=== PATIENT | male | born 2000 | race Hispanic/Latino ===

== ENCOUNTER 2023-01-15 21:27 | Emergency (ER) | payer OTHER ==
--- OUTSIDE RECORDS SUMMARY | 2023-01-15 21:32 | XMS REPORT | Continuity of Care Document ---
:2000 Author Organization [facility] t Address [address] [facility] [address] [place] [address] Care Team Providers Name Role Phone Estelle Carr Primary Care Physician Nilsa Chun MD Attending Clinician NILSA CHUN Attending Clinician Unavailable Payers Payer Name Policy Type Policy Number Effective Date Expiration Date S ource Problems This patient has no known problems. Allergies, Adverse Reactions, Alerts Allergy Allergy Status Severity Reaction(s) Onset Inactive Treating Comm ents Source Name Type Date Date Clinician NO KNOWN Drug Active Univers ALLERGIE Class ity of [facility] Social History Social Habit Start Date Stop Date Quantity Comments Source Exposure to Not sure [facility] SARS-CoV-2 (event) Medica l Branch Sex Assigned At 2000 1998 [facility] 00:00:00 00:00:00 [facility] Smoking Status Start Date Stop Date Source Unknown if ever smoked [facility] Medications Ordered Filled Start Stop Current Ordering Indication Dosage Frequency Signature Comments Components Source Medication Medication Date Date Medication? Clinician (SIG) Name Name iopamidol 2020- No [id number] 120mL 120 mL, Univers (ISOVUE 11-05 Intravenou ity o f 370-500 mL) 04:30: 03:18 s, ONCE, 1 [place] injection 00 :00 dose, On Medica l 120 mL e Branch 11/04/20 at 2330, Routine ondansetron 2020- No 4mg 4 mg, Slow Univers (ZOFRAN 11-05 IV Push, ity of (PF)) 04:30: 03:33 ONCE, 1 [place] injection 4 00 :00 dose, On Medi vanessa mg [facility] Branch 11/04/20 at 2330, CARLO morpHINE 2020- No 4mg 4 mg, Slow Un luci injection 4 11-05 IV Push, ity of mg 04:30: 03:34 ONCE, 1 [place] 00 :00 dose, On [facility] 11/04/20 at 2330, STAT iopamidol 2020- No [id number] 120mL 120 mL, Univers (ISOVUE 11-05 Intravenou ity o f 370-500 mL) 04:30: 03:18 s, ONCE, 1 [place] injection 00 :00 dose, On Medica l 120 mL [facility] 11/04/20 at 2330, Routine ondansetron 2020- No 4mg 4 mg, Slow Univers (ZOFRAN 11-05 IV Push, ity of (PF)) 04:30: 03:33 ONCE, 1 [place] injection 4 00 :00 dose, On Medi vanessa mg [facility] 11/04/20 at 2330, CARLO morpHINE 2020- No 4mg 4 mg, Slow Un luci injection 4 11-05 IV Push, ity of mg 04:30: 03:34 ONCE, 1 [place] 00 :00 dose, On [facility] 11/04/20 at 2330, STAT NaCl 0.9% 2020- No 500mL at 999 Univ ers (NS) bolus 11-05 mL/hr, 500 it y of infusion 03:45: 04:06 mL, IV [place] 500 mL 00 :00 Piggyback, Medical ONCE, 1 Branch dose, On [facility] 11/04/20 at 2245, STAT NaCl 0.9% 2020- No 500mL at 999 Univ ers (NS) bolus 11-0515 mL/hr, 500 it y of infusion 03:45: 04:06 mL, IV [place] 500 mL 00 :00 Piggyback, Medical ONCE, 1 Branch dose, On [facility] 11/04/20 at 2245, STAT ibuprofen 2020- Yes [id number] 600mg Take 1 U nivers 600 mg 9-15 tablet by ity of tablet 00:00: mouth [place] 00 every 6 Medical (six) Branch hours as needed for Pain (scale 4-6). ibuprofen Yes [id number] 600mg Take 1 U nivers 600 mg 9-15 tablet by ity of tablet 00:00: mouth [place] 00 every 6 Medical (six) Branch hours as needed for Pain (scale 4-6). Vital Signs Vital Name Observation Time Observation Value Comments Source Systolic blood 2020-11-05 05:00:00 138 mm[facility]Hg[facility] Diastolic blood 2020-11-05 05:00:00 80 mm[Hg[facility] Heart rate 2020-11-05 05:00:00 65 /min [facility] Respiratory rate 2020-11-05 05:00:00 16 /min [facility] Oxygen saturation in 2020-11-05 05:00:00 97 /min [facility] Arterial blood by [facility] Pulse oximetry Branch Body height 2020-11-05 02:34:53 167.6 cm [facility] Body weight 2020-11-05 02:34:53 76.204 kg [facility] BMI 2020-11-05 02:34:53 27.12 kg/m2 [facility] Body temperature 2020-11-05 02:24:00 37.17 Heather [facility] Procedures Procedure Date / Time Performing Clinician Source Performed URINALYSIS 2020-11-05 04:03:00 Nilsa Chun o f [facility] URINE DRUG (IMMUNOASSAY) 2020-11-05 04:03:00 Nilsa Chun [facility] n[facility] SCREEN W/O REFLEX CT TRAUMA HEAD WO 2020-11-05 03:26:57 Nilsa Chun [facility] CONTRAST [facility] CT TRAUMA THORAX W 2020-11-05 03:26[facility] CT TRAUMA CERVICAL SPINE 2020-11-05 03:26:[address] [facility] CONTRAST Medical [place] CT TRAUMA THORACIC SPINE 2020-11-05 03:26:57 Chun, Nilsa [facility] CONTRAST Medical Branch CT TRAUMA ABDOMEN PELVIS 2020-11-05 03:26:57 Nilsa Chun [facility] CONTRAST Medical Branch CT TRAUMA LUMBAR SPINE 2020-11-05 03:26:57 Nilsa Chun [facility] CONTRAST Medical Branch HB ABO GROUPING 2020-11-05 02:55:00 Nilsa Chun [facility] COVID-19 (ID NOW RAPID 2020-11-05 02:53:[address] [facility] TESTING) Medical Branch LIPASE 2020-11-05 02:52:00 Nilsa Chun [facility] TROPONIN I 2020-11-05 02:52:00 Nilsa Chnu [facility] COMP. METABOLIC PANEL 2020-11-05 02:52:00 Nilsa Chun [facility] ([id number]) Medical Branch ETHANOL 2020-11-05 02:52:00 Nilsa Chun [facility] CBC WITH DIFF 2020-11-05 02:52:00 Nilsa Chun [facility] PROTHROMBIN TIME / INR 2020-11-05 02:52:00 Nilsa Chun [facility] ACTIVATED PARTIAL 2020-11-05 02:52:00 Nilsa Chun [facility] THRMPLAS CESAR [facility] N-TERMINAL PRO-BNP 2020-11-05 02:52:00 Nilsa Chun [facility] NOTICE OF PRIVACY 2020-11-05 02:17:25 Doctor Unassigned, No Univ [facility] PRACTICES Name Medical Branch CONSENT/REFUSAL FOR 2020-11-05 02:10:29 [facility], [facility] Name Medical [place] Encounters Start End Encounter Admission Attending Care Care Encounter Source Date/Time Date/Time Type Type Clinicians Facility Department ID 2022-12-30 2022-12-30 Outpatient CAMRON LYON [id number] Enrrique 11:01:33 11:01:33 1109 F Tony 2021-11-25 2021-11-25 Outpatient CAMRON LYON [id number] Enrrique 13:31:31 13:31:31 1005 F Tony 2020-11-04 2020-11-05 Emergency Johnny WVJANA [id number] Univers 21:28:00 01:17:00 Nilsa Gutierrez [id number] i ty of Ayush [id number] [facility] [id number] [place] [id number] Branch 2020-11-04 2020-11-04 Emergency X JOHNNY [facility] ERT [id number] Univers 21:28:00 21:28:00 NILSA [facility] Results Test Description Test Time Test Comments Results Result Comments Source CBC W/AUTO DIFF WITH PLATELETS 2021-11-26 06:52:53 Test Item Value Reference Range Interpretation Comme nts WBC (test code = 1001) 6.7 K/UL 3.5-11.0 RBC (test code = 1002) 4.15 M/UL 4.50-6.10 L HEMOGLOBIN (test code = 1003) 14.0 G/DL 13.5-17.0 HEMATOCRIT (test code = 1004) 38.9 % 40.0-51.0 L MCV (test code = 1005) 93.7 fL 80.0-99.0 MCH (test code = 1006) 33.7 PG 25.0-33.0 H MCHC (test code = 1007) 36.0 G/DL 31.0-36.0 RDW (test code = 1038) 12.4 % 11.5-15.0 NEUTROPHILS (test code = 49.2 % 1008) LYMPHOCYTES (test code = 37.3 % 1010) MONOCYTES (test code = 1011) 7.3 % EOSINOPHILS (test code = 5.2 % 1012) BASOPHILS (test code = 1013) 0.7 % IMMATURE GRANULOCYTES (test 0.3 % code = 1036) NUCLEATED RBCS (test code = 0.0 /100 WBC'S See_Comment [Automated message] The 1065) system which ge nerated this result transmit shola reference range : 0.0. The reference range was not used to interpr et this result as pritesh l/abnormal. PLATELET COUNT (test code = 352 K/UL 256-352 1982) ABSOLUTE NEUTROPHILS (test 3.30 K/UL 1.50-7.50 code = 1066) ABSOLUTE LYMPHOCYTES (test 2.50 K/UL 1.00-4.00 code = 1067) ABSOLUTE MONOCYTES (test code 0.49 K/UL 0.20-1.00 = 1068) ABSOLUTE EOSINOPHILS (test 0.35 K/UL 0.00-0.50 code = 1040) ABSOLUTE BASOPHILS (test code 0.05 K/UL 0.00-0.20 = 1069) ABS IMMATURE GRANULOCYTES 0.02 K/UL 0.00-0.10 (test code = 1020) ABS NUCLEATED RBCS (test code 0.00 K/UL 0.00-0.11 = 56927) COMPREHENSIVE METABOLIC [id number] 03:24:11 Test Item Value Reference Range Interpretation Comments GLUCOSE (test code = 88 MG/DL 70-99 2216) BUN (test code = 13 MG/DL 6-20 2207) CREATININE (test 0.83 MG/DL 0.80-1.40 code = 2214) eGFR (2020 CKD-EPI) 126 >60 (test code = 24383) ML/MIN/1.73 CALC BUN/CREAT (test 16 RATIO 6-28 code = 2235) SODIUM (test code = 143 MEQ/L 001-551 6708) POTASSIUM (test code 3.6 MEQ/L 3.5-5.4 = 2227) CHLORIDE (test code 105 MEQ/L 95-107 = 2214) CARBON DIOXIDE (test 24 MEQ/L 19-31 code = 220) CALCIUM (test code = 9.4 MG/DL 8.5-10.5 2208) PROTEIN, TOTAL (test 7.2 G/DL 6.1-8.3 code = 2229) ALBUMIN (test code = 5.0 G/DL 3.5-5.2 2200) CALC GLOBULIN (test 2.2 G/DL 1.9-3.7 code = 2240) CALC A/G RATIO (test 2.3 RATIO 1.0-2.6 code = 2234) BILIRUBIN, TOTAL 0.8 MG/DL See_Comment [Automated message] (test code = 2207) The syste m which generated this result transmit shola reference range : <=1.2. The refe rence range was not u sed to interpret th is result as normal/abnormal . ALKALINE PHOSPHATASE 93 U/L 40-121 (test code = 2204) AST (test code = 18 U/L 9-50 2217) ALT (test code = 12 U/L 5-50 2218) LIPID [id number] 03:24:11 Test Item Value Reference Range Interpretation Comments CHOLESTEROL (test 142 MG/DL <200 code = 2210) TRIGLYCERIDES (test 86 MG/DL <150 code = 2232) HDL CHOLESTEROL (test 33 MG/DL >39 L code = 2220) CALC LDL CHOL (test 91 MG/DL <100 NOTE: C ALCULATED LDL code = 2237) IS BASED ON JOCELINE-KLEIN METHOD WHICHINCLUDES ADJUSTABLE TRIGLYCERIDE:VL DL CHOLESTEROL RAT IO.THIS FACTOR VARIES B Y MEASURED TRIGLY CERIDE AND NON-HDLCHOL ESTEROL CONCENTRATIONS WITH INCREASED CALCU LATED LDL SEENIN HIGH ER TRIGLYCERIDE OR LOWER NON-HDL SPECIME NS. FOR MOREINFORMATION , SEE CLIENT ANNOUNCE MENT AT [email or web address] [email or web address] RATIO LDL/HDL 2.76 RATIO <3.55 UNLESS O THERWISE (test code = 2238) INDICATED , ALL TESTING PERFORMED [facility] PATHOLOGY [facility], [address] DIRECTOR: ALEXA ERWIN M.D. CLIA NUMBER [id number] CAP ACCREDITATION N O. [id number] TROPONIN [id number] 05:34:30 Test Item Value Reference Interpretation Comments Range TROPONIN I (test 0.001 ng/mL See_Comment [Automated code = 7072110627) message] The system which generated this result transmitted reference range : <=0.034. The reference range was not used to interpret this result as normal/abnormal . FIONA (test code = Reference (Normal) FIONA) Range (defined by the 99th percentile reference limit): <= 0.034 ng/mL Note: Cardiac troponin begins to rise 3-4 hours after the onset of ischemia. Repeat in 4-6 hours if the sample was drawn within 3-4 hours of the onset of the symptom and found normal. Diagnosis of myocardial injury is made with acute changes in cTn concentrations with at least one serial sample above the 99th percentile upper reference limit (URL), taken together with the patient's clinical presentation. Biotin has been reported to cause a negative bias, interpret results relative to patient's use of biotin. Lab Interpretation Normal (test code = 07699-3) [facility] [id number] 05:34:30 Test Item Value Reference Interpretation Comments Range TROPONIN I (test 0.001 ng/mL See_Comment [Automated code = 7908232244) message] The system which generated this result transmitted reference range : <=0.034. The reference range was not used to interpret this result as normal/abnormal . FIONA (test code = Reference (Normal) FIONA) Range (defined by the 99th percentile reference limit): <= 0.034 ng/mL Note: Cardiac troponin begins to rise 3-4 hours after the onset of ischemia. Repeat in 4-6 hours if the sample was drawn within 3-4 hours of the onset of the symptom and found normal. Diagnosis of myocardial injury is made with acute changes in cTn concentrations with at least one serial sample above the 99th percentile upper reference limit (URL), taken together with the patient's clinical presentation. Biotin has been reported to cause a negative bias, interpret results relative to patient's use of biotin. Lab Interpretation Normal (test code = 15558-9) [facility] [id number] 05:31:29 Test Item Value Reference Range Interpretation Comments NT-proBNP (test code 29 pg/mL See_Comment [Autom ated = 9402076105) message] The system which generated this result transmitted reference range : <=125. The reference range was not used to interpret this result as normal/abnormal . FIONA (test code = FIONA) Biotin has been reported to cause a negative bias, interpret results relative to patient's use of biotin. Lab Interpretation Normal (test code = 82295-1) [facility] [id number] 05:31:29 Test Item Value Reference Range Interpretation Comments NT-proBNP (test code 29 pg/mL See_Comment [Autom ated = 2816129345) message] The system which generated this result transmitted reference range : <=125. The reference range was not used to interpret this result as normal/abnormal . FIONA (test code = FIONA) Biotin has been reported to cause a negative bias, interpret results relative to patient's use of biotin. Lab Interpretation Normal (test code = 68270-7) [facility] - ONCE [id number] 05:31:00 Test Item Value Reference Range Interpretation Comments ABO & RH (test code O Positive Performe d at [facility] = 20) Laboratory [facility] Blood Bank[address] [place], [place] [address]Toll Free: [phone] A No. [id number] IAT (test code = Negative Performed a t [facility] 1185) Laboratory [facility] Blood [place] [address]Toll Free: [phone] A No. [id number] [facility] - ONCE [id number] 05:31:00 Test Item Value Reference Range Interpretation Comments ABO & RH (test code O Positive Performe d at [facility] = 20) Laboratory [facility] Blood [place] [address]Toll Free: [phone] A No. [id number] IAT (test code = Negative Performed a t [facility] 1185) Laboratory [facility] Blood [place] [address]Toll Free: [phone] A No. [id number] [facility] Hospital[facility]. METABOLIC PANEL ([id number])2020-11-05 05:22:47 Test Item Value Reference Range Interpretation Comments NA (test code = 138 mmol/L 135-145 2412164649) K (test code = 3.8 mmol/L 3.5-5.0 6733181457) CL (test code = 101 mmol/L 98-108 3527447363) CO2 TOTAL (test code = 22 mmol/L 23-31 L 3964755642) AGAP (test code = 2-16 1157243795) BUN (test code = 11 mg/dL 7-23 7349525449) GLUCOSE (test code = 113 mg/dL 70-110 H 6944195584) CREATININE (test code = 0.84 mg/dL 0.60-1.25 8196525538) TOTAL BILI (test code = 0.6 mg/dL 0.1-1.3 2444742553) CALCIUM (test code = 10.0 mg/dL 8.6-10.6 7539713849) T PROTEIN (test code = 8.8 g/dL 6.3-8.2 H 0507939503) ALBUMIN (test code = 5.3 g/dL 3.5-5.0 H 1294198981) ALK PHOS (test code = 96 U/L 34-122 0218594102) ALTv (test code = 21 U/L 5-50 1742-6) AST(SGOT) (test code = 34 U/L 13-40 4806609325) eGFR (test code = mL/min/1.73m2 7559049067) FIONA (test code = FIONA) Association of Glomerular Filtration Rate (GFR) and Staging of Kidney Disease* + --+ --+ ------+| GFR (mL/min/1.73 m2) ?| With Kidney Damage ?| ?Without Kidney Damage+ --------+ --------+ +| ?>90 ?| ?Stage one ?| ? Normal ?+ ---+ ---+ -------+| ?60-89 ?| ?Stage two ?| ? Decreased GFR ? + --+ --+ ------+| ?30-59 ?| ?Stage three ?| ? Stage three ? + --+ --+ ------+| ?15-29 ?| ?Stage four ? | ? Stage four ?+ ---+ ---+ -------+| ?<15 (or dialysis) ? ?| ?Stage five ? | ? Stage five ?+ ---+ ---+ -------+ *Each stage assumes the associated GFR level has been in effect for at least three months. ?Stages 1 to 5, with or without kidney disease, indicate chronic kidney disease. Notes: Determination of stages one and two (with eGFR >59mL/min/1.73 m2) requires estimation of kidney damage for at least three months as defined by structural or functional abnormalities of the kidney, manifested by either:Pathological abnormalities or Markers of kidney damage (including abnormalities in the composition of the blood or urine or abnormalities in imaging tests). Lab Interpretation Abnormal (test code = 51314-0) [facility]. METABOLIC PANEL ([id number])2020-11-05 05:22:47 Test Item Value Reference Range Interpretation Comments NA (test code = 138 mmol/L 135-145 1801772447) K (test code = 3.8 mmol/L 3.5-5.0 3312022420) CL (test code = 101 mmol/L 98-108 5793720803) CO2 TOTAL (test code = 22 mmol/L 23-31 L 3096593215) AGAP (test code = 2-16 3524011729) BUN (test code = 11 mg/dL 7-23 0443479539) GLUCOSE (test code = 113 mg/dL 70-110 H 6750484112) CREATININE (test code = 0.84 mg/dL 0.60-1.25 4993393241) TOTAL BILI (test code = 0.6 mg/dL 0.1-1.1 0974998623) CALCIUM (test code = 10.0 mg/dL 8.6-10.6 7007830902) T PROTEIN (test code = 8.8 g/dL 6.3-8.2 H 1682278934) ALBUMIN (test code = 5.3 g/dL 3.5-5.0 H 1123418408) ALK PHOS (test code = 96 U/L 34-122 6912352283) ALTv (test code = 21 U/L 5-50 1742-6) AST(SGOT) (test code = 34 U/L 13-40 6254600910) eGFR (test code = mL/min/1.73m2 7109379056) FIONA (test code = FIONA) Association of Glomerular Filtration Rate (GFR) and Staging of Kidney Disease* + --+ --+ ------+| GFR (mL/min/1.73 m2) ?| With Kidney Damage ?| ?Without Kidney Damage+ --------+ --------+ +| ?>90 ?| ?Stage one ?| ? Normal ?+ ---+ ---+ -------+| ?60-89 ?| ?Stage two ?| ? Decreased GFR ? + --+ --+ ------+| ?30-59 ?| ?Stage three ?| ? Stage three ? + --+ --+ ------+| ?15-29 ?| ?Stage four ? | ? Stage four ?+ ---+ ---+ -------+| ?<15 (or dialysis) ? ?| ?Stage five ? | ? Stage five ?+ ---+ ---+ -------+ *Each stage assumes the associated GFR level has been in effect for at least three months. ?Stages 1 to 5, with or without kidney disease, indicate chronic kidney disease. Notes: Determination of stages one and two (with eGFR >59mL/min/1.73 m2) requires estimation of kidney damage for at least three months as defined by structural or functional abnormalities of the kidney, manifested by either:Pathological abnormalities or Markers of kidney damage (including abnormalities in the composition of the blood or urine or abnormalities in imaging tests). Lab Interpretation Abnormal (test code = 87189-8) [facility] 05:22:27 Test Item Value Reference Range Interpretation Comments LIPASE (test code = 8655771723) 30 U/L 0-220 Lab Interpretation (test code = Normal 16792-5) [facility] 05:22:27 Test Item Value Reference Range Interpretation Comments LIPASE (test code = 5887372041) 30 U/L 0-220 Lab Interpretation (test code = Normal 32265-3) [facility]2021-09-15 03:33:11 Test Item Value Reference Range Interpretation Comments ALCOHOL (test code = 11 mg/dL 5136489409) FIONA (test code = FIONA) <10 Epeqofak48-907 Toxic>100 Depression of PLUG PASTER>400 Fatalities Reported [facility]21[facility] 03:33:11 Test Item Value Reference Range Interpretation Comments ALCOHOL (test code = 11 mg/dL 9761954136) FIONA (test code = FIONA) <10 Npxglote72-628 Toxic>100 Depression of PLUG PASTER>400 Fatalities Reported [facility] THRMPLAS [id number] 03:20:27 Test Item Value Reference Range Interpretation Comments APTT Patient (test See_Comment [Automat ed code = 3173-2) message] The system which generated this result transmitted reference range : 23 - 38 Seconds . The reference range was not used to interpr et this result as normal/abnormal . FIONA (test code = FIONA) The [facility] patient population mean normal value for aPTT is 30 seconds. Lab Interpretation Normal (test code = 10698-6) [facility] THRM[facility]AS [id number] 03:20:27 Test Item Value Reference Range Interpretation Comments APTT Patient (test See_Comment [Automat ed code = 3173-2) message] The system which generated this result transmitted reference range : 23 - 38 Seconds . The reference range was not used to interpr et this result as normal/abnormal . FIONA (test code = FIONA) The [facility] patient population mean normal value for aPTT is 30 seconds. Lab Interpretation Normal (test code = 21378-0) [facility] HospitalPROTHROMBIN TIME / [id number] 03:18:32 Test Item Value Reference Range Interpretation Comments PROTIME PATIENT (test See_Comment [Auto mated message] code = 5964-2) The system ich generated this result transmitted ref erence range: 12.0 - 1 4.7 Seconds. The re ference range was not u sed to interpret this result as normal/abnor mal. INR (test code = 6301-6) Nor mal INR <1.1; Warfarin Therap eutic range 2.0 to 3. 0 or 2.5 to 3.5, dep ending upon the indica tions. Lab Interpretation (test Normal code = 17427-6) [facility] / [id number] 03:18:32 Test Item Value Reference Range Interpretation Comments PROTIME PATIENT (test See_Comment [Auto mated message] code = 5964-2) The system ich generated this result transmitted ref erence range: 12.0 - 1 4.7 Seconds. The re ference range was not u sed to interpret this result as normal/abnor mal. INR (test code = 6301-6) Nor mal INR <1.1; Warfarin Therap eutic range 2.0 to 3. 0 or 2.5 to 3.5, dep ending upon the indica tions. Lab Interpretation (test Normal code = 52999-5) [facility] WITH [id number] 03:10:29 Test Item Value Reference Range Interpretation Comments WBC (test code = See_Comment [Automated 6690-2) message] The sy stem which generated this result transmitted reference range : 4.20 - 10.70 10*3/?L. The reference range was not used to interpret this result as normal/abnormal . RBC (test code = See_Comment [Automated 789-8) message] The sy stem which generated this result transmitted reference range : 4.26 - 5.52 10*6/?L. The reference range was not used to interpret this result as normal/abnormal . HGB (test code = 15.3 g/dL 12.2-16.4 718-7) HCT (test code = 43.1 % 38.4-49.3 4544-3) MCV (test code = 91.7 fL 81.7-95.6 787-2) MCH (test code = 32.6 pg 26.1-32.7 785-6) MCHC (test code = 35.5 g/dL 31.2-35.0 H 786-4) RDW-SD (test code = 38.6 fL 38.5-51.6 37671-8) RDW-CV (test code = 11.4 % 12.1-15.4 L 788-0) PLT (test code = See_Comment [Automated 777-3) message] The sy stem which generated this result transmitted reference range : 150 - 328 10*3/ ?L. The reference r chad was not used to interpret this result as normal/abnormal . MPV (test code = 8.2 fL 9.8-13.0 L 08327-4) NRBC/100 WBC (test See_Comment [Automat ed code = 6791711198) message] The system which generated this result transmitted reference range : 0.0 - 10.0 /100 WBCs. The refer ence range was not u sed to interpret th is result as normal/abnormal . NRBC x10^3 (test code <0.01 See_Comment [Auto mated = 0516540788) message] The s ystem which generated this result transmitted reference range : 10*3/?L. The reference range was not used to interpret this result as normal/abnormal . GRAN MAT (NEUT) % 77.3 % (test code = 770-8) IMM GRAN % (test code 0.80 % = 5010130428) LYMPH % (test code = 15.4 % 736-9) MONO % (test code = 5.0 % 5905-5) EOS % (test code = 0.9 % 713-8) BASO % (test code = 0.6 % 706-2) GRAN MAT x10^3(ANC) 8.19 10*3/uL 1.99-6.95 H (test code = 0120059582) IMM GRAN x10^3 (test 0.08 10*3/uL 0.00-0.06 H code = 2782415165) LYMPH x10^3 (test code 1.63 10*3/uL 1.09-3.23 = 731-0) MONO x10^3 (test code 0.53 10*3/uL 0.36-1.02 = 742-7) EOS x10^3 (test code = 0.09 10*3/uL 0.06-0.53 711-2) BASO x10^3 (test code 0.06 10*3/uL 0.01-0.09 = 704-7) Lab Interpretation Abnormal (test code = 52042-0) [facility] WITH [id number] 03:10:29 Test Item Value Reference Range Interpretation Comments WBC (test code = See_Comment [Automated 2690-2) message] The sy stem which generated this result transmitted reference range : 4.20 - 10.70 10*3/?L. The reference range was not used to interpret this result as normal/abnormal . RBC (test code = See_Comment [Automated 129-8) message] The sy stem which generated this result transmitted reference range : 4.26 - 5.52 10*6/?L. The reference range was not used to interpret this result as normal/abnormal . HGB (test code = 15.3 g/dL 12.2-16.4 718-7) HCT (test code = 43.1 % 38.4-49.3 4544-3) MCV (test code = 91.7 fL 81.7-95.6 787-2) MCH (test code = 32.6 pg 26.1-32.7 785-6) MCHC (test code = 35.5 g/dL 31.2-35.0 H 786-4) RDW-SD (test code = 38.6 fL 38.5-51.6 09122-3) RDW-CV (test code = 11.4 % 12.1-15.4 L 788-0) PLT (test code = See_Comment [Automated 977-3) message] The sy stem which generated this result transmitted reference range : 150 - 328 10*3/ ?L. The reference r chad was not used to interpret this result as normal/abnormal . MPV (test code = 8.2 fL 9.8-13.0 L 90780-3) NRBC/100 WBC (test See_Comment [Automat ed code = [id number]) message] The system which generated this result transmitted reference range : 0.0 - 10.0 /100 WBCs. The refer ence range was not u sed to interpret th is result as normal/abnormal . NRBC x10^3 (test code <0.01 See_Comment [Auto mated = [id number]) message] The s ystem which generated this result transmitted reference range : 10*3/?L. The reference range was not used to interpret this result as normal/abnormal . GRAN MAT (NEUT) % 77.3 % (test code = 770-8) IMM GRAN % (test code 0.80 % = 7946932021) LYMPH % (test code = 15.4 % 736-9) MONO % (test code = 5.0 % 5905-5) EOS % (test code = 0.9 % 713-8) BASO % (test code = 0.6 % 706-2) GRAN MAT x10^3(ANC) 8.19 10*3/uL 1.99-6.95 H (test code = 4140075692) IMM GRAN x10^3 (test 0.08 10*3/uL 0.00-0.06 H code = 0048068881) LYMPH x10^3 (test code 1.63 10*3/uL 1.09-3.23 = 731-0) MONO x10^3 (test code 0.53 10*3/uL 0.36-1.02 = 742-7) EOS x10^3 (test code = 0.09 10*3/uL 0.06-0.53 711-2) BASO x10^3 (test code 0.06 10*3/uL 0.01-0.09 = 704-7) Lab Interpretation Abnormal (test code = 15240-7) [facility]"
[2023-01-15 22:12] LABS: Absolute Lymphocytes (CBC) 0.4 K/uL (0.7-4.9); Hematocrit 44.1 % (39.6-49.0); Lymphocytes % 5.2 % (15.3-44.8); MPV 6.2 fL (7.6-11.3); Platelets 307 thou/uL (152-406); RBC Red Blood Cell Count 4.75 M/uL (4.33-5.43)
[2023-01-15 22:34] LABS: Albumin 4.6 g/dL (3.4-5.0); Bilirubin Total 0.7 mg/dL (0.2-1.0); Potassium 3.6 mEq/L (3.5-5.1); Protein, Total 8.6 g/dL (6.4-8.2)
[2023-01-15 22:50] LABS: SARS-COV-2 RT PCR NEGATIVE (NEGATIVE)
--- NOTE | 2023-01-15 22:59 | EDPHYS ---
Physician Documentation [facility] Name: Alvarado Cavanaugh Age: 22 yrs Sex: Male : 2000 Arrival Date: 01/15/2023 Time: 21:27 Bed 7 Private MD: ED Physician Mark Parmar HPI: 01/16 00:08 This 22 yrs old Male presents to ER via Ambulatory with complaints of kb Abdominal Pain. 00:08 Patient is a 22-year-old male who presents for abdominal pain, nausea, vomiting, fever, kb chills, cough, congestion and body aches that started this morning.. Historical: - Allergies: 01/15 21:42 No Known Allergies; cm10 - PMHx: 21:42 None; cm10 - Immunization history:: Adult Immunizations unknown. - Social history:: Smoking status: Patient denies any tobacco usage or history of. ROS: 01/16 00:09 Cardiovascular: Negative for chest pain, palpitations, and edema, kb Constitutional: Positive for body aches, chills, fever, malaise, ENT: Positive for rhinorrhea, sinus congestion, Respiratory: Positive for cough, Abdomen/GI: Positive for abdominal pain, nausea and vomiting, All other systems are negative, Exam: 00:09 Constitutional: This is a well developed, well nourished patient who is awake, alert, kb and in no acute distress. Head/Face: Normocephalic, atraumatic. ENT: Moist Mucous membranes Cardiovascular: Regular rate Respiratory: Respirations even and unlabored. No increased work of breathing. Talking in full sentences Abdomen/GI: Soft, non-tender. No distention Skin: Warm, dry with normal turgor. Normal color. MS/ Extremity: Pulses equal, no cyanosis. Neurovascular intact. Full, normal range of motion. Neuro: Awake and alert, GCS 15, oriented to person, place, time, and situation. Moves all extremities. Normal gait. Vital Signs: 01/15 21:40 BP 138 / 79; Pulse 100; Resp 18; Temp 99; Pulse Ox 100% ; Weight 69.4 kg; Height 5 ft. cm10 6 in. ; Pain 6/10; 22:56 BP 136 / 79; Pulse 84; Resp 16; Pulse Ox 97% on R/A; km8 23:30 BP 115 / 63; Pulse 68; Resp 16; Pulse Ox 96% on R/A; km8 21:40 Body Mass Index 24.69 (69.40 kg, 167.64 cm) cm10 21:40 Pain Scale: Adult cm10 Neal Coma Score: 22:54 Eye Response: spontaneous(4). Motor Response: obeys commands(6). Verbal Response: km8 oriented(5). Total: 15. MDM: 21:32 Patient medically screened. kb 01/16 00:10 Differential diagnosis: cholecystitis, Cholelithiasis, gastroesophageal reflux disease, kb COVID, flu, URI. Data reviewed: vital signs, nurses notes. Counseling: I had a detailed discussion with the patient and/or guardian regarding the historical points, exam findings, and any diagnostic results supporting the discharge/admit diagnosis, lab results, the need for outpatient follow up, a family practitioner, to return to the emergency department if symptoms worsen or persist or if there are any questions or concerns that arise at home. 01/15 21:45 Order name: COVID-19/FLU A+B; Complete Time: 22:58 cm10 01/15 21:45 Order name: CBC with Diff cm10 01/15 21:45 Order name: CMP; Complete Time: 22:40 cm10 01/15 21:45 Order name: Lipase; Complete Time: 22:40 cm10 01/15 21:45 Order name: IV Saline Lock; Complete Time: 22:06 cm10 01/15 21:45 Order name: Labs collected and sent; Complete Time: 22:06 cm10 Administered Medications: 01/15 22:54 Drug: Ondansetron IVP 4 mg IVP once; over 2 minutes Route: IVP; Site: [facility] 23:39 Follow up: Response: No adverse reaction 22:54 Drug: NS 0.9% IV 1000 ml IV at 1000 ml once Route: IV; Rate: 1000 ml; Site: right [facility] antecubital; 23:39 Follow up: IV Status: Completed infusion; IV Intake: 1000ml 22:54 Drug: Famotidine IVP 20 mg IVP once; dilute with 10 mL 0.9% NaCl; give over 2 minutes Route: IVP; Site: right antecubital; 23:39 Follow up: Response: No adverse reaction km8 Disposition: 01/16 06:55 Co-signature as Attending Physician, Mark Parmar MD I agree with the assessment sp4 and plan of care. I reviewed the patient's care provided by the Advanced Practice Provider and agree with the diagnosis and treatment plan. Disposition Summary: 01/15/23 22:58 Discharge Ordered Notes: Location: Home kb Condition: Stable kb Diagnosis - Influenza due to identified novel influenza A virus - B kb Followup: kb - With: Emergency Department - When: As needed - Reason: Worsening of condition Followup: kb - With: Private Physician - When: 2 - 3 days - Reason: Recheck today's complaints, Continuance of care, Re-evaluation by your physician Discharge Instructions: - Discharge Summary Sheet kb - Influenza, Adult, [id number] kb Forms: - Medication Reconciliation Form kb - Thank You Letter kb - Antibiotic Education kb - Prescription Opioid Use kb - Patient Portal Instructions kb - Leadership Thank You Letter kb Prescriptions: - Zofran 4 mg Oral tablet - take 1 tablet ORAL route every 6 hours As needed; 10 tablet; Refills: 0, kb Product Selection Permitted - Tamiflu 75 mg Oral capsule - take 1 tablet ORAL route every 12 hours for 5 days; 10 tablet; Refills: 0, kb Product Selection Permitted Signatures: Dispatcher [employer] EDMS Anitha Mckay, RADHIKA DENNEY-Mark Bird MD MD sp4 Tiffanie Leyva, RN RN cm10 Krystal Norris RN RN km8
--- NOTE | 2023-01-15 22:59 | ER ---
Nurse's Notes [facility] Name: Alvarado Cavanaugh Age: 22 yrs Sex: Male : 2000 Arrival Date: 01/15/2023 Time: 21:27 Bed 7 Private MD: Diagnosis: Influenza due to identified novel influenza A virus-B Presentation: 01/15 21:40 Chief complaint: Patient states: that he hasn't been feeling all day today. Pt states cm10 that he has had a subjective fever, cough, and chills. Coronavirus screen: Vaccine status: Patient reports receiving the 2nd dose of the covid vaccine. Client denies travel out of the [place] in the last 14 days. Ebola Screen: Patient denies travel to an Ebola-affected area in the 21 days before illness onset. No symptoms or risks identified at this time. Initial Sepsis Screen: Does the patient meet any 2 criteria? No. Patient's initial sepsis screen is negative. Does the patient have a suspected source of infection? No. Patient's initial sepsis screen is negative. Risk Assessment: Do you want to hurt yourself or someone else? Patient reports no desire to harm self or others. Onset of symptoms was January 15, 2023. 21:40 Method Of Arrival: Ambulatory cm10 21:40 Acuity: JOSÉ ANTONIO 3 cm10 Triage Assessment: 22:11 General: Appears in no apparent distress. comfortable, Behavior is calm, cooperative. cm10 Pain: Complains of pain in generalized body aches. Neuro: No deficits noted. Level of Consciousness is awake, alert, obeys commands, Oriented to person, place, time, situation. Cardiovascular: No deficits noted. Patient's skin is warm and dry. Respiratory: No deficits noted. Airway is patent Respiratory effort is even, unlabored, Respiratory pattern is regular, symmetrical. GI: Abdomen is flat, Reports nausea. Derm: No deficits noted. Skin is intact, Skin is pink, warm \T\ dry. Musculoskeletal: No deficits noted. Range of motion: intact in all extremities. Historical: - Allergies: 21:42 No Known Allergies; cm10 - PMHx: 21:42 None; cm10 - Immunization history:: Adult Immunizations unknown. - Social history:: Smoking status: Patient denies any tobacco usage or history of. Screenin:12 [facility] ED Fall Risk Assessment (Adult) History of falling in the last 3 months, cm10 including since admission No falls in past 3 months (0 pts) Confusion or Disorientation No (0 pts) Intoxicated or Sedated No (0 pts) Impaired Gait No (0 pts) Mobility Assist Device Used No (0 pt) Altered Elimination No (0 pt) Score/Fall Risk Level 0 - 2 = Low Risk Oriented to surroundings, Maintained a safe environment, Hourly rounding (assess needs \T\ fall precautionary measures) done. Abuse screen: Denies threats or abuse. Denies injuries from another. Nutritional screening: No deficits noted. Tuberculosis screening: No symptoms or risk factors identified. Assessment: 22:54 General: Appears in no apparent distress. comfortable, Behavior is calm, cooperative, km8 appropriate for age. Pain: Complains of pain in abdomen. Neuro: Zamudio Agitation-Sedation Scale (RASS): 0 - Alert and Calm Level of Consciousness is awake, alert, obeys commands, Oriented to person, place, time, situation. Cardiovascular: Denies chest pain, shortness of breath, Capillary refill < 3 seconds Patient's skin is warm and dry. Respiratory: Airway is patent Respiratory effort is even, unlabored, Respiratory pattern is regular, symmetrical. GI: Abdomen is flat, non-distended, Bowel sounds present X 4 quads. Abd is non tender. : No signs and/or symptoms were reported regarding the genitourinary system. EENT: No signs and/or symptoms were reported regarding the EENT system. Derm: No signs and/or symptoms reported regarding the dermatologic system. Skin is intact, is healthy with good turgor, Skin is dry, Skin is pink, warm \T\ dry. normal, Skin temperature is warm. Musculoskeletal: No signs and/or symptoms reported regarding the musculoskeletal system. Range of motion: intact in all extremities. 23:38 Reassessment: Patient appears in no apparent distress at this time. No changes from km8 previously documented assessment. Patient and/or family updated on plan of care and expected duration. Pain level reassessed. Patient is alert, oriented x 3, equal unlabored respirations, skin warm/dry/pink. Vital Signs: 21:40 BP 138 / 79; Pulse 100; Resp 18; Temp 99; Pulse Ox 100% ; Weight 69.4 kg; Height 5 ft. cm10 6 in. ; Pain 6/10; 22:56 BP 136 / 79; Pulse 84; Resp 16; Pulse Ox 97% on R/A; km8 23:30 BP 115 / 63; Pulse 68; Resp 16; Pulse Ox 96% on R/A; km8 21:40 Body Mass Index 24.69 (69.40 kg, 167.64 cm) cm10 21:40 Pain Scale: Adult cm10 Wilton Coma Score: 22:54 Eye Response: spontaneous(4). Motor Response: obeys commands(6). Verbal Response: km8 oriented(5). Total: 15. ED Course: 21:29 Patient arrived in ED. jj6 21:32 Anitha Mckay FNP-C is PHCP. kb 21:32 Mark Parmar MD is Attending Physician. kb 21:42 Triage completed. cm10 21:42 Arm band placed on Patient placed in waiting room. cm10 22:06 COVID-19/FLU A+B Sent. cm10 22:06 CBC with Diff Sent. cm10 22:06 CMP Sent. cm10 22:06 Lipase Sent. cm10 22:06 Initial lab(s) drawn, by me, sent to lab. COVID swab sent to lab. Flu and/or RSV swab cm10 sent to lab. Inserted saline lock: 20 gauge in right antecubital area, using aseptic technique. Blood collected. 22:12 Patient has correct armband on for positive identification. Provided Education on: ER cm10 process and procedures. . 22:54 Client placed on continuous cardiac and pulse oximetry monitoring. NIBP monitoring km8 applied. Door closed. Noise minimized. Lights dimmed. Warm blanket given. 22:54 Patient maintains SpO2 saturation greater than 95% on room air. km8 23:44 IV discontinued, intact, bleeding controlled, No redness/swelling at site. Pressure km8 dressing applied. 23:44 No provider procedures requiring assistance completed. km8 Administered Medications: 22:54 Drug: Ondansetron IVP 4 mg IVP once; over 2 minutes Route: IVP; Site: right antecubital;km8 23:39 Follow up: Response: No adverse reaction km8 22:54 Drug: NS 0.9% IV 1000 ml IV at 1000 ml once Route: IV; Rate: 1000 ml; Site: right km8 antecubital; 23:39 Follow up: IV Status: Completed infusion; IV Intake: 1000ml km8 22:54 Drug: Famotidine IVP 20 mg IVP once; dilute with 10 mL 0.9% NaCl; give over 2 minutes km8 Route: IVP; Site: right antecubital; 23:39 Follow up: Response: No adverse reaction km8 Medication: 22:12 VIS not applicable for this client. cm10 Intake: 23:39 IV: 1000ml; Total: 1000ml. km8 Outcome: 22:58 Discharge ordered by MD. coats 23:53 Patient left the ED. km8 Signatures: Anitha Mckay, SHUBHAMC ОЛЕГ-Roya Cortez [id number] Tiffanie Leyva RN RN cm10 Krystal Norris RN RN km8
[2023-01-15] MEDS ORDERED: ONDANSETRON 4 MG/2 ML VIAL ONE (23:01)
[2023-01-15] MEDS ORDERED: NA CHLORIDE 0.9% 1,000 ML ONE (23:01)
[2023-01-15] MEDS ORDERED: FAMOTIDINE 20 MG/2 ML VIAL IV ONE (23:01)
[2023-01-16 00:41] VITALS: TEMP 99
[2023-01-16 00:53] LABS: Blood Morphology Comment NOT SEEN (NOT SEEN); Platelet Estimate ADEQ; White Blood Cell Scan OK (OK)
[2023-01-16 01:25] VITALS: BP 136/79; O2SAT 97
== END 2023-01-15 23:53 | disposition home or self-care (01) ==
LOC: ER 21:27
DX: J10.1 Influenza due to other identified influenza virus with other respiratory manifestations (principal); Z11.52 Encounter for screening for COVID-19
CPT/HCPCS: 96361; 85025; 36415; 83690; 80053; 0240U; 96375; 96374; 99285; J2405; J7030